=== PATIENT | male | born 1935 | race Caucasian/White ===

== ENCOUNTER → 2020-09-20 | Outpatient (CLI) | payer MEDICARE, OTHER ==
[~2020-09-20] MED LIST: AMLODIPINE BESYL5 MG PO; BAYER CHEWABLE81 MG PO; BRIMONIDINE TAR15 M1 OU; COQ-10100 MG PO; LATANOPROST2.5 ML OU; METOPROLOL SUCC50 MG PO; POTASSIUM99 M1 PO; PROTONIX 40 MG40 M1 PO; SIMVASTATIN20 MG PO; VINEGAR PO
== END ==
LOC: HEART 5 10:48
DX: R06.02 Shortness of breath (principal); I42.2 Other hypertrophic cardiomyopathy
CPT/HCPCS: 93306

== ENCOUNTER → 2020-10-17 | Outpatient (CLI) | payer MEDICARE, OTHER | LOC: HEART 5 07:46 | DX: I20.0 Unstable angina (principal); I25.9 Chronic ischemic heart disease, unspecified | CPT/HCPCS: 78452; A9502; J2785 ==

== ENCOUNTER → 2020-12-07 | Outpatient (CLI) | payer MEDICARE, OTHER ==
[2020-12-07 15:08] LABS: HEMOGLOBIN 14.1 gm/dl (14.0-17.5); RED BLOOD COUNT 4.84 M/UL (4.20-5.50); WHITE BLOOD COUNT 5.4 K/UL (4.5-11.0)
== END ==
LOC: LAB 13:48
PROVIDERS: Internal Medicine Interventional Cardiology
DX: Z01.812 Encounter for preprocedural laboratory examination (principal); Z20.822 Contact with and (suspected) exposure to COVID-19; E78.5 Hyperlipidemia, unspecified; R06.02 Shortness of breath; I10 Essential (primary) hypertension
CPT/HCPCS: 36415; 80048; 85025; 85610; 85730; 93005; U0003

== ENCOUNTER → 2020-12-12 | Outpatient (CLI) | payer MEDICARE, OTHER | LOC: CATH 09:56 | DX: I25.118 Atherosclerotic heart disease of native coronary artery with other forms of angina pectoris (principal); I10 Essential (primary) hypertension; E78.5 Hyperlipidemia, unspecified; Z87.891 Personal history of nicotine dependence; Z79.82 Long term (current) use of aspirin; Z79.899 Other long term (current) drug therapy; Z20.822 Contact with and (suspected) exposure to COVID-19 | CPT/HCPCS: 93571; 99152; 99153; C1769; C1887; J0153; J1644; J2250; J3010; J7030; Q9965; U0002 ==

== ENCOUNTER → 2021-12-04 | Outpatient (CLI) | payer MEDICARE, OTHER ==
[2021-12-04 15:38] LABS: HEMOGLOBIN 12.8 gm/dl (14.0-17.5); RED BLOOD COUNT 4.29 M/UL (4.20-5.50); WHITE BLOOD COUNT 4.4 K/UL (4.5-11.0)
== END ==
LOC: LAB 14:55
PROVIDERS: Nurse Practitioner
DX: U07.1 COVID-19 (principal); R06.02 Shortness of breath; R91.8 Other nonspecific abnormal finding of lung field
CPT/HCPCS: 0240U; 36415; 71046; 83880; 85025